=== PATIENT | male | born 1985 | race American Indian/Alaskan Native ===

== ENCOUNTER 2016-04-04 17:05 | Emergency (ER) | payer BC ==
[2016-04-04 17:47] VITALS: BP 121/81
--- NOTE | 2016-04-04 22:00 | Emergency Department Report ---
HPI - General Chief Complaint: Recheck/Abnormal Lab/Rx Time Seen by Provider: 04/04/16 21:50 - HPI HPI: This is a 30-year-old male patient who reports that he needs prescription for [id number]-bdo-mouth disease. He said he has similar symptoms in the summertime and he was treated at [place] with valacyclovir. He brought paperwork with him several proof. Patient denies any fever or chills. Denies any nausea or vomiting. Denies shortness of breath or chest pain. Reports sores to his tongue, palms and feet. Report that he had a HIV test done 2 months ago and it was negative. Patient denies any pain at present. ED Past Medical Hx - Past Medical History Previous Medical History?: No - Surgical History Past Surgical History?: No - Family History Family history: no significant - Social History Smoking Status: Never Smoker Substance Use Type: None - Medications Home Medications: Home Medications Medication Instructions Recorded Confirmed Last Taken Type Valacyclovir HCl [Valtrex] 1,000 mg PO TID #21 tablet 04/04/16 Unknown Rx ED Review of Systems ROS: Stated complaint: HEAD FOOT AND MOUTH PRESCRIPTION Other details as noted in HPI Comment: All other systems reviewed and negative Constitutional: denies: chills, fever Eyes: denies: eye pain, eye discharge ENT: other (sores to mouth). denies: ear pain, throat pain, dental pain Respiratory: no symptoms reported Cardiovascular: denies: chest pain, palpitations, edema, syncope Musculoskeletal: denies: back pain, joint swelling, arthralgia, myalgia Skin: lesions (feet, mouth and palms) Neurological: denies: headache, weakness, numbness, paresthesias, confusion, abnormal gait, vertigo Physical Exam - Physical Exam Vital Signs: Vital Signs 04/04/16 17:44 Temperature 98.3 F Pulse Rate 84 Respiratory 16 Rate Blood Pressure 121/81 O2 Sat by Pulse 98 Oximetry General: Is a 30-year-old male well-nourished well-developed in no acute distress. Physical Exam: Head: Normocephalic atraumatic Mouth: Moist, no pharyngeal exudate or erythema. Uvula is midline and oral airway is patent. No gingival enlargement or dental tenderness. No facial swelling. No peritonsillar abscesses. Tongue with lesions Neck: Supple, no C-spine tenderness, no tracheal deviation. Nontender to palpate. no adenopathy Ears: Bilateral TMs are bedoya.bilateral EAC without any redness swelling or drainage Eyes: Bilateral pupils equal and reactive to light, bilateral EOM intact. Bilateral sclera and conjunctiva without injection. Normal accommodation Nose: Mucosa moist, normal mucosa. maxillary and frontal sinus non-tender to palpate. Lungs:Clear to auscultate bilaterally no rhonchi wheezes or rales. Normal work of breathing extremity; No CCE. +2 pulses. No neurovascular compromise Cardiovascular: S1-S2, regular rate rhythm. No murmurs. Skin: Noted lesions to tongue, bilateral palms sparsely scattered and plantar aspect of both feet. Erythema with no induration. Drainage noted. Psych: Normal mood and behavior ED Course Vital Signs 04/04/16 17:44 Temperature 98.3 F Pulse Rate 84 Respiratory 16 Rate Blood Pressure 121/81 O2 Sat by Pulse 98 Oximetry - Reevaluation(s) Reevaluation #1: 04/04/16 22:10 ED stay uneventful ED Medical Decision Making - EKG Data When compared to previous EKG there are: no significant change - Medical Decision Making ED Course: Patient treated for hand foot and mouth disease in emergency room. Given prescription for valacyclovir as he said this helped with similar incident in the past. Had HIV testing done 2 months ago when he said it was negative. Table throughout ED course and discharged home with prescription for valacyclovir. Critical care attestation.: If time is entered above; I have spent that time in minutes in the direct care of this critically ill patient, excluding procedure time. ED Disposition Clinical Impression: Hand, foot, and mouth disease Disposition: DISCHARGED TO HOME OR SELFCARE Is pt being admited?: No Does the pt Need Aspirin: No Condition: Stable Instructions: Hand, Foot, and Mouth Disease (ED) Prescriptions: Valacyclovir HCl [Valtrex] 1,000 mg PO TID #21 tablet Referrals: PRIMARY CARE, [Primary Care Provider] - 2-3 Days Forms: Work/School Release Form(ED)
== END 2016-04-04 22:30 | disposition home or self-care (01) ==
LOC: ED 17:05
DX: B08.4 Enteroviral vesicular stomatitis with exanthem (principal)
CPT/HCPCS: 99282